=== PATIENT | female | born 1980 | race Caucasian/White ===

== ENCOUNTER 2021-04-03 11:40 | Day surgery (SDC) | payer BC ==
[2021-03-29 13:06] VITALS: BMI 30.4
[2021-04-03 12:19] VITALS: TEMP 97.8
[2021-04-03] MEDS ORDERED: PROPOFOL 20 ML ONE ×2 (13:02)
[2021-04-03 13:57] VITALS: BP 126/87; PULSE 87
== END 2021-04-03 13:55 | disposition home or self-care (01) ==
LOC: FASU-ENDO 11:40
PROVIDERS: ATTEND Internal Medicine Gastroenterology
PROC: 0DB78ZX Excision of Stomach, Pylorus, Via Natural or Artificial Opening Endoscopic, Diagnostic (ICD-10-PCS; 2021-04-03)
PROC: 0DB48ZX Excision of Esophagogastric Junction, Via Natural or Artificial Opening Endoscopic, Diagnostic (ICD-10-PCS; 2021-04-03)
PROC: 0DB98ZX Excision of Duodenum, Via Natural or Artificial Opening Endoscopic, Diagnostic (ICD-10-PCS; principal; 2021-04-03 13:10)
DX: K25.9 Gastric ulcer, unspecified as acute or chronic, without hemorrhage or perforation (principal); K29.50 Unspecified chronic gastritis without bleeding
CPT/HCPCS: 84703; 88305-TC; 88342-TC

== ENCOUNTER 2021-07-06 11:00 | Day surgery (SDC) | payer BC ==
[2021-07-03 16:00] VITALS: BMI 29.5
[2021-07-06 13:14] VITALS: PULSE 80; TEMP 97.5
[2021-07-06 13:16] VITALS: BP 115/70
== END 2021-07-06 13:20 | disposition home or self-care (01) ==
LOC: FASU-ENDO 11:00
PROVIDERS: ATTEND Internal Medicine Gastroenterology
PROC: 0DB68ZX Excision of Stomach, Via Natural or Artificial Opening Endoscopic, Diagnostic (ICD-10-PCS; 2021-07-06)
PROC: 0DB98ZX Excision of Duodenum, Via Natural or Artificial Opening Endoscopic, Diagnostic (ICD-10-PCS; principal; 2021-07-06 12:18)
DX: Z13.810 Encounter for screening for upper gastrointestinal disorder (principal)
CPT/HCPCS: 88305-TC; 88342-TC